=== PATIENT | male | born 1930 | race Caucasian/White ===

== ENCOUNTER 2018-11-03 08:03 | Inpatient (IN) | payer OTHER ==
[~2018-11-03] VITALS: Ht 175.3 cm; Wt 83.0 kg
[~2018-11-03 08:03] MED LIST: ASPI81TA PO; FURO20TA3 PO; HYDROCODONE
[2018-11-03 09:16] LABS: Basophils # (auto) 0 uL; Basophils % (auto) 0.4 % (0.0-2.0); Eosinophils # (auto) 0 uL; Eosinophils % (auto) 0.3 % (0.0-7.0); Hematocrit 27.1 % (41.0-53.0); Lymphocytes % (auto) 18.1 % (10.0-50.0); Mean Corpuscular Hemoglobin 30.6 pg (28.0-32.0); Mean Corpuscular Hgb Conc. 33.3 g/dL (32.0-36.0); Mean Corpuscular Volume 91.9 fL (80.0-100.0); Monocytes # (auto) 1.1 uL; Neutrophils # (auto) 3.6 uL; Neutrophils % (auto) 62.1 % (37.0-80.0); Platelet Count (auto) 178 10^3/uL (140-450); Red Blood Cells 2.95 10^6/uL (4.5-5.90); Red Cell Distribution Width 15.6 % (11.8-14.3); White Blood Cell 5.7 10^3/uL (4.4-10.8)
[2018-11-03 09:25] LABS: Monocytes % (auto) 19.1 % (0.0-12.0)
[2018-11-03 09:35] LABS: Albumin 2.4 g/dL (3.4-5.0); BUN/Creatinine Ratio 21.1; Calcium 7.8 mg/dL (8.5-10.1); Potassium 3.5 mmol/L (3.5-5.1)
[2018-11-03 09:40] LABS: Bilirubin, Total 0.5 mg/dL (0.2-1.0); Total Protein 5.6 g/dL (6.4-8.2)
[2018-11-03] MEDS ORDERED: SODIUM CHLORIDE 0.9% 1,000 ML IV ONE ×2 (09:53→11:15)
[2018-11-03] MEDS ORDERED: ENOXAPARIN SOD 80 MG/0.8ML SYRINGE SC ONE (10:15)
[2018-11-03] MEDS ORDERED: MORPHINE SULFATE 4 MG/ML SYR/VIAL IV PRN (11:15)
[2018-11-03] MEDS ORDERED: NITROGLYCERIN 0.4 MG SL TAB SL PRN (11:15)
[2018-11-03] MEDS ORDERED: ACETAMINOPHEN 500 MG TAB PO PRN (11:15)
[2018-11-03] MEDS ORDERED: NITROGLYCERIN 0.2MG/HR TOPICAL PATCH TD ONE (11:15)
[2018-11-03] MEDS ORDERED: ASPirin 81 mg TAB PO ONE (11:15)
[2018-11-03] MEDS ORDERED: HYDROcodone-ACET 5/325MG TAB PO PRN (11:15)
[2018-11-03] MEDS ORDERED: MORPHINE SULF INJ 2 MG/ML SYRINGE 1ML IV PRN (11:15)
[2018-11-03] MEDS ORDERED: ONDANSETRON HCL 4 MG/2 ML VIAL IV PRN (11:15)
[2018-11-03] MEDS ORDERED: ALBUTEROL SULF 2.5 MG/0.5ML(0.5%) NEB SOLN NEB PRN (11:30)
[2018-11-03] MEDS ORDERED: IPRATROPIUM BROM 0.5 MG/2.5ML INH SOL NEB PRN (11:30)
[2018-11-03] MEDS: PANTOPRAZOLE 40 MG/10 ML VIAL IV SCH (14:17)
[2018-11-03] MEDS: GABAPENTIN 300 MG CAP PO SCH (14:17)
[2018-11-03] MEDS: cefTRIAXone 1GM/50ML D5W 50 ML IV SCH (15:42)
[2018-11-03 16:08] LABS: Urine Bacteria MANY /hpf (None Seen); Urine Blood 1+ /uL (Negative); Urine Specific Gravity 1.017 (1.001-1.035); Urine WBC 3453 /hpf (0 - 3)
[2018-11-03 16:11] LABS: Creatinine, Urine 101 mg/dL (30.0-125.0); Sodium Urine 43 mmol/L (40-220)
[2018-11-03] MEDS: TAMSULOSIN HYDROCHLORIDE 0.4 MG CAP PO SCH (18:00)
[2018-11-03] MEDS ORDERED: ALBUMIN 25% 100 ML IV ONE (20:30)
[2018-11-03] MEDS: CARVEDILOL 3.125 MG TAB PO SCH (22:00)
[2018-11-03] MEDS: ATORVASTATIN 20 MG TAB PO SCH (22:11)
[2018-11-03] MEDS: DOCUSATE SOD 100 MG CAP PO SCH (22:11)
[2018-11-03] MEDS ORDERED: NOREPINEPHRINE 8 MG/250ML KIT 250 ML IV SCH (23:30)
[2018-11-03] MEDS ORDERED: NOREPINEPHRINE 8 MG/250ML KIT 250 ML IV ONE (23:32)
--- NOTE | 2018-11-04 03:34 | NUR ---
Respiratory note: PT SLEEPING. PT HR 60, RR 18, SPO2 97% ON 2.5LPM NC, BS CLEAR BILATERALLY. PRN MED NEB TX NOT INDICATED AT THIS TIME WILL CONTINUE TO MONITOR PT ORDERED.
[2018-11-04 03:38] VITALS: BP 99/43
[2018-11-04 07:42] LABS: Hematocrit 27.9 % (41.0-53.0); Hemoglobin 9.4 g/dL (13.5-17.5); Mean Corpuscular Hemoglobin 30.6 pg (28.0-32.0); Mean Corpuscular Hgb Conc. 33.6 g/dL (32.0-36.0); Mean Corpuscular Volume 91.1 fL (80.0-100.0); Platelet Count (auto) 162 10^3/uL (140-450); Red Blood Cells 3.07 10^6/uL (4.5-5.90); Red Cell Distribution Width 15.5 % (11.8-14.3); White Blood Cell 5.2 10^3/uL (4.4-10.8)
[2018-11-04 07:43] LABS: % Iron Saturation 4.7 % (20-55)
[2018-11-04 07:44] LABS: Basophils % (manual) 0 (0.0-2.0); Blast Cells 0; Eosinophils % (manual) 0 (0-7); Metamyelocytes % 0; Myelocytes % 0; Promyelocytes % 0; Reactive Lymphocytes 0
[2018-11-04 07:47] LABS: Calcium 8.2 mg/dL (8.5-10.1); Magnesium 2.8 mg/dL (1.6-2.6); Potassium 3.9 mmol/L (3.5-5.1)
[2018-11-04 07:53] LABS: BUN/Creatinine Ratio 25.6
[2018-11-04 09:00] VITALS: BP 96/40
[2018-11-04] MEDS: cefTRIAXone 1GM/50ML D5W 50 ML IV SCH (09:58)
[2018-11-04] MEDS: PANTOPRAZOLE 40 MG/10 ML VIAL IV SCH (09:58)
[2018-11-04] MEDS: ASPirin 81 mg TAB PO SCH (10:00)
[2018-11-04] MEDS: DOCUSATE SOD 100 MG CAP PO SCH ×2 (10:00→22:26)
[2018-11-04] MEDS: GABAPENTIN 300 MG CAP PO SCH (10:00)
[2018-11-04] MEDS: CARVEDILOL 3.125 MG TAB PO SCH ×2 (10:02→22:00)
[2018-11-04] MEDS: NITROGLYCERIN 0.2MG/HR TOPICAL PATCH TD SCH (10:02)
[2018-11-04 13:00] VITALS: BP 91/38
[2018-11-04] MEDS: SODIUM CHLORIDE 0.9% 1,000 ML IV SCH (13:07)
[2018-11-04 14:21] LABS: Band Neutrophils % (manual) 4; Lymphocytes % (manual) 27 (10.0-50.0); Monocytes % (manual) 18 (0-12)
[2018-11-04 17:00] VITALS: BP 105/47
[2018-11-04] MEDS: TAMSULOSIN HYDROCHLORIDE 0.4 MG CAP PO SCH (17:58)
[2018-11-04] MEDS ORDERED: SIMV10TA84 PO (18:42)
[2018-11-04] MEDS ORDERED: LEV100T PO (18:42)
[2018-11-04] MEDS ORDERED: AMIO200T33 PO (18:42)
[2018-11-04] MEDS ORDERED: CARV3.1240 PO (18:42)
[2018-11-04] MEDS ORDERED: GABA100C9 PO (18:42)
[2018-11-04] MEDS ORDERED: BETH50TA2 PO (18:42)
[2018-11-04] MEDS ORDERED: MONT10TA34 PO (18:42)
--- NOTE | 2018-11-04 19:34 | NUR ---
Opening Shift Note Assumed care of patient, awake and alert x4. No S/S of distress/SOB on room air. Denies pain at this time. Bed locked in lowest position call light within reach. Instructed on POC and to call for assist PRN, will continue to monitor for changes Q1hr and PRN.
[2018-11-04 22:00] VITALS: BP 98/46
[2018-11-04] MEDS: ATORVASTATIN 20 MG TAB PO SCH (22:26)
[2018-11-05] MEDS: SODIUM CHLORIDE 0.9% 1,000 ML IV SCH (01:06)
[2018-11-05 04:44] VITALS: BP 112/46
--- NOTE | 2018-11-05 07:00 | NUR ---
Opening Shift Note Assumed care of patient, awake and alert. No S/S of distress/SOB or pain. Instructed on POC and to call for assist PRN, will continue to monitor for changes Q1hr and PRN.
[2018-11-05 07:39] LABS: Basophils # (auto) 0 uL; Basophils % (auto) 0.2 % (0.0-2.0); Eosinophils # (auto) 0.2 uL; Eosinophils % (auto) 2.8 % (0.0-7.0); Lymphocytes # (auto) 1.3 uL; Lymphocytes % (auto) 21.6 % (10.0-50.0); Mean Corpuscular Hemoglobin 30.2 pg (28.0-32.0); Mean Corpuscular Hgb Conc. 33.2 g/dL (32.0-36.0); Mean Corpuscular Volume 90.7 fL (80.0-100.0); Monocytes % (auto) 16.2 % (0.0-12.0); Neutrophils # (auto) 3.6 uL; Neutrophils % (auto) 59.2 % (37.0-80.0); Nucleated Red Blood Cells % 0.1 %; Platelet Count (auto) 184 10^3/uL (140-450); Red Blood Cells 3.31 10^6/uL (4.5-5.90); White Blood Cell 6.1 10^3/uL (4.4-10.8)
[2018-11-05 07:50] LABS: BUN/Creatinine Ratio 26.9; Calcium 8.1 mg/dL (8.5-10.1); Potassium 3.6 mmol/L (3.5-5.1)
[2018-11-05 08:10] VITALS: BP 123/56
--- NOTE | 2018-11-05 08:23 | NUR ---
Respiratory note: ASSESSED PT FOR PRN PT WAS AWAKE AND ALERT NO RESP DISTRESS NOTED. HR 60, RR 16, SPO2 95% ON ROOM AIR. BS ARE CLEAR. PT KNOWS TO HAVE RT PAGED IF TX IS NEEDED.
[2018-11-05] MEDS: NITROGLYCERIN 0.2MG/HR TOPICAL PATCH TD SCH (10:00)
[2018-11-05] MEDS: cefTRIAXone 1GM/50ML D5W 50 ML IV SCH (10:42)
[2018-11-05] MEDS: PANTOPRAZOLE 40 MG/10 ML VIAL IV SCH (10:42)
[2018-11-05] MEDS: ASPirin 81 mg TAB PO SCH (10:43)
[2018-11-05] MEDS: DOCUSATE SOD 100 MG CAP PO SCH (10:43)
[2018-11-05] MEDS: CARVEDILOL 3.125 MG TAB PO SCH (10:43)
[2018-11-05] MEDS: GABAPENTIN 300 MG CAP PO SCH (10:44)
[2018-11-05 12:18] VITALS: BP 103/59
[2018-11-05 13:04] VITALS: BP 112/64
--- NOTE | 2018-11-05 14:22 | NUR ---
Discharge instructions given as ordered. Encourage to follow up with PMD as instructed. All questions and concerns addressed. Patient verbalized understanding. Medication reconciliation form completed and copy given to patient. IV removed with catheter intact, pressure dressing applied, dominique catheter IN PLACE PER DOCTORS ORDERS. Telemetry unit returned to ICU. Patient taken to vehicle via wheelchair with all personal belongings, accompanied by staff and family member. No distress noted at time of departure.
== END 2018-11-05 14:22 | disposition home or self-care (01) | DRG 280 ==
LOC: ER 08:03 → EDSEX 08:03 → EDBD 08:03 → TELE 11:17 → TELE-EAST 11-04 09:18
PROVIDERS: ADMIT Nurse Practitioner Acute Care; ATTEND Internal Medicine Geriatric Medicine
DX: I21.4 Non-ST elevation (NSTEMI) myocardial infarction (principal); E43 Unspecified severe protein-calorie malnutrition; N17.0 Acute kidney failure with tubular necrosis; I42.9 Cardiomyopathy, unspecified; N39.0 Urinary tract infection, site not specified; D64.9 Anemia, unspecified; I25.10 Atherosclerotic heart disease of native coronary artery without angina pectoris; E78.5 Hyperlipidemia, unspecified; J44.9 Chronic obstructive pulmonary disease, unspecified; E03.9 Hypothyroidism, unspecified; G62.9 Polyneuropathy, unspecified; I12.9 Hypertensive chronic kidney disease with stage 1 through stage 4 chronic kidney disease, or unspecified chronic kidney disease; N40.1 Benign prostatic hyperplasia with lower urinary tract symptoms; N18.9 Chronic kidney disease, unspecified; I95.9 Hypotension, unspecified; Z87.440 Personal history of urinary (tract) infections; Z68.27 Body mass index [BMI] 27.0-27.9, adult; Z95.5 Presence of coronary angioplasty implant and graft; I25.2 Old myocardial infarction; Z95.810 Presence of automatic (implantable) cardiac defibrillator; Z79.82 Long term (current) use of aspirin; Z90.49 Acquired absence of other specified parts of digestive tract
CPT/HCPCS: 36415; 51702; 70450; 71045; 72192; 80048; 80053; 80061; 81001; 82570; 83540; 83550; 83735; 83935; 84300; 84443; 84484; 85007; 85025; 85027; 86141; 86850; 86900; 86901; 87040; 87086; 87088; 87186; 93005; 93306; 94761; C9113; G0378; J0696; P9047